=== PATIENT | female | born 1990 | race Caucasian/White ===

== ENCOUNTER 2024-10-29 19:34 | Emergency (ER) | payer OTHER, SELFPAY ==
[2024-10-29 19:38] VITALS: BMI 23.9
[2024-10-29 20:34] VITALS: BP 131/78; PULSE 85; RESP 18; TEMP 37.3; O2SAT 100
--- NOTE | 2024-10-29 20:49 | XR_ITS ---
Examination: OB Transvaginal ultrasound of the pelvis, complete Technique: Transvaginal sonographic images pelvis performed using little scale imaging Exam date and time: October 29, [id number] hours INDICATIONS: Pelvic pain and vaginal bleeding today, history of ectopic FINDINGS: Uterus 7.9 cm Intrauterine gestational sac 1.3 cm corresponds to 6 weeks 1 day gestational age No pole, no cardiac activity Right ovary 3.9 cm arterial flow No appropriate 3.9 cm arterial flow IMPRESSION: Intrauterine gestational sac corresponding to 6 weeks 1 day gestational age No pole, no cardiac activity Recommend short-term follow-up transvaginal pelvic sonography to exclude demise.
[2024-10-29 21:22] LABS: Collection Type, Urine Clean Catch
[2024-10-29 21:31] LABS: Bilirubin,Urine Negative (Negative); Blood,Urine 1+ (Negative); Clarity,Urine Clear (Clear/Hazy); Color,Urine Colorless (Lt Yel-Yel); Glucose, Urine Negative (Negative); Ketones,Urine Negative (Negative); Leukocyte Esterase,Urine Negative (Negative); Nitrite,Urine Negative (Negative); PH,Urine 6.0 (5.0-7.0); Protein,Urine Negative (Neg - Trace); RBC,Urine 2 /hpf (0-3); Specific Gravity,Urine 1.009 (1.001-1.035); Squamous Epithelial Cell,Urine 1 /hpf (0-5); Urobilinogen,Urine Negative mg/dL (0.0-1.0); WBC,Urine 1 /hpf (0-5)
[2024-10-29 21:59] LABS: Basophils # (Auto) 0.0 Thou/mm3 (0.0-0.2); Basophils % (Auto) 0 % (0-2.5); Eosinophils # (Auto) 0.3 Thou/mm3 (0.0-0.5); Eosinophils % (Auto) 3 % (0-10); Hematocrit 38.8 % (36.0-46.0); Hemoglobin 13.3 g/dL (12.0-16.0); Immature Granulocytes Auto 0.04 Thou/mm3 (0.00-0.00); Lymphocytes # (Auto) 3.1 Thou/mm3 (1.0-4.8); Lymphocytes % (Auto) 30 % (10-50); Mean Corpuscular HGB Conc 34.3 g/dl (31.0-37.0); Mean Corpuscular Hemoglobin 30.8 pg (25.0-35.0); Mean Corpuscular Volume 90 fL (80-100); Monocytes # (Auto) 0.7 Thou/mm3 (0.0-0.8); Monocytes % (Auto) 7 % (0-12); Neutrophils # (Auto) 6.2 Thou/mm3 (1.8-7.7); Neutrophils % (Auto) 60 % (37-80); Nucleated Red Blood Cell # 0.00 Thou/mm3 (0.00-0.00); Nucleated Red Blood Cell % 0 /100 WBC (0); Platelet Count 253 Thou/mm3 (140-440); RDW Standard Deviation 41.6 fL (36.4-46.3); Red Blood Count 4.32 Miln/mm3 (4.00-5.20); White Blood Count 10.4 Thou/mm3 (3.6-11.0)
[2024-10-29 22:21] LABS: Alanine Aminotransferase 14 U/L (10-49); Albumin, Serum 4.5 gm/dL (3.5-5.0); Albumin/Globulin Ratio 1.8 (1.2-2.2); Alkaline Phosphatase 51 U/L (46-116); Anion Gap 10 (7-16); Aspartate Amino Transferase 18 U/L (0-34); BUN/Creatinine Ratio 9 Ratio (12-20); Bilirubin,Total 0.3 mg/dL (0.3-1.2); Blood Urea Nitrogen 9 mg/dL (9-23); Calcium 9.4 mg/dL (8.3-10.6); Calcium (Corrected) 9.4 mg/dL (8.5-10.1); Carbon Dioxide 26.5 mMol/L (20.0-31.0); Chloride 105 mMol/L (98-107); Creatinine (Component) 1.0 mg/dL (0.6-1.3); Estimated Creatinine Clearance 65.6 mL/min (>60); Globulin 2.5 gm/dL (2.3-3.5); Glucose 86 mg/dL (74-106); Osmolality,Calculated 278 (275-295); Potassium 3.7 mMol/L (3.4-5.1); Sodium 141 mMol/L (136-145); Total Protein 7.0 gm/dL (5.7-8.2); eGFR > 60 See Note
[2024-10-29 22:55] LABS: Beta HCG,Quantitative 12520 mIU/mL (<5.0)
--- NOTE | 2024-10-30 00:10 | PD.EDVAGBL ---
ED OB Contraction Preg RMI/HPI General Chief complaint: Abdominal Pain Stated complaint: VAGINAL BLEEDING, ABD PAIN Time Seen by Provider: 10/29/24 20:49 Arrival date/time: 10/29/24 19:34 34F at approximately 7-8 weeks and with history of ectopic (s/p L tubal resection) presents to ED with several days of vaginal bleeding and pelvic pain. Limitations: no limitations Related Data Home Medications ?Medication ?Instructions ?Recorded ?Confirmed No Known Home Medications 09/14/17 09/14/17 Allergies Allergy/AdvReac Type Severity Reaction Status Date / Time No Known Allergies Allergy Verified 10/29/24 20:42 Review of Systems Review of Systems Systems Reviewed: All systems reviewed, normal except as documented Constitutional Constitutional: Reports system reviewed and no additional complaints, except as documented, Denies fever(s) and Denies headache(s) ENT Ears, Nose, Mouth, and Throat: Denies disequilibrium and Denies headache(s) Cardiovascular Cardiovascular: Reports system reviewed and no additional complaints, except as documented, Denies chest pain and Denies dyspnea Respiratory Respiratory: Reports system reviewed and no additional complaints, except as documented, Denies cough and Denies dyspnea Gastrointestinal Gastrointestinal: Reports system reviewed and no additional complaints, except as documented, Denies abdominal pain, Denies nausea and Denies vomiting Genitourinary Genitourinary: Reports as per HPI, Reports abnormal vaginal bleeding and Reports pelvic pain Neurologic Neurologic: Reports system reviewed and no additional complaints, except as documented, Denies confusion, Denies disequilibrium and Denies headache(s) Psychiatric Psychiatric: Denies confusion Past Medical History Past Medical History CARDIAC: Negative Congestive Heart Failure RESPIRATORY: Negative Chronic Obstructive Pulmonary Disease (COPD) GENITOURINARY: Negative Renal Disease ENDOCRINE: Negative Diabetes Mellitus Type 1 or Diabetes Mellitus Type 2 Social History SMOKING STATUS: Never smoker ED Exam General Limitations: Present no limitations General appearance: Present alert and in no apparent distress Head Head exam: Present atraumatic Eye Eye exam: Present normal appearance, PERRL and EOMI ENT ENT exam: Present normal exam, normal oropharynx and mucous membranes moist Neck Neck exam: Present normal inspection, full ROM and trachea midline Chest Chest inspection: Present normal inspection and symmetric chest wall rise Respiratory Respiratory exam: Present normal lung sounds bilaterally Cardiovascular Cardiovascular exam: Present regular rate, normal rhythm and normal heart sounds Abdominal Exam Abdominal exam: Present soft and normal bowel sounds Extremities Exam Extremities exam: Present normal inspection and full ROM Back Exam Back exam: Present normal inspection and full ROM Neurological Exam Neurological exam: Present alert, oriented X3 and CN II-XII intact Psychiatric Psychiatric exam: Present normal affect and normal mood Skin Skin exam: Present warm, dry, intact and normal color Course Quality Measures none Orders Category Date Time Status US OB transvaginal Stat Exams 10/29/24 20:49 Completed ABO/RH Type Stat Lab 10/29/24 21:28 Completed Beta HCG,Quantitative Stat Lab 10/29/24 21:28 Completed CBC Stat Lab 10/29/24 21:28 Completed CMP [Comprehensive Metabolic Panel] Stat Lab 10/29/24 21:28 Completed UA [Urinalysis] Stat Lab 10/29/24 21:06 Completed Urine Culture Stat Lab 10/29/24 21:06 Received Vital Signs Vital signs: Vital Signs Temperature 99.2 F 10/29/24 20:34 Pulse Rate 85 10/29/24 20:34 Respiratory Rate 18 10/29/24 20:34 Blood Pressure 131/78 H 10/29/24 20:34 Pulse Oximetry (%) 100 10/29/24 20:34 Oxygen Delivery Method Room Air 10/29/24 20:34 O2 at 100% on RA and WNLs Vaginal Bleeding MDM Narrative MDM Narrative: 34F at approximately 7-8 weeks and with history of ectopic (s/p L tubal resection) presents to ED with several days of vaginal bleeding and pelvic pain. Physical exam reveals well-appearing female. Patient is afebrile, calm, and alert. US reveals IUP but empty gestation sac. Beta HCG around 12.5k, which is above the 10k from yesterday at [facility] (they faxed results). No gross anemia or leukocytosis. Sustainability Manager given. Blood type A+. Patient data External records reviewed:: [facility] previous records and Other (specify) ([facility] records) Clinical information provided by:: patient Social determinants that could affect healthcare access:: none Patient has the following chronic illnesses:: none How is presenting disease/condition affected by chronic disease/condition?: no chronic disease Evaluation data The following diagnostics were reviewed and interpreted by me:: lab results and radiology exam(s) Lab and/or radiology exams considered but not ordered:: ordered Interpretation Summary: above Medications / Prescriptions Medications or Prescriptions considered but not ordered:: not ordered Medication administrations:: n/a Consultations Consultation(s) initiated? (list below): No Diagnosis Vaginal Bleeding Differential Diagnosis: missed , threatened , dysfunctional uterine bleeding, menometrorrhagia, incomplete , ectopic without intrauterine and vaginal bleeding Most likely diagnosis given after review of the tests above:: vaginal bleeding Admission Indicated Admission indicated?: not indicated Admission Request Was there a request for admission?: No Disposition Plan Disposition Plan: Discharge Discharge Attestation Discharge Attestation: The patient and all family members were given an opportunity to ask questions and understood the discharge instructions. Discharge instructions specifically effects, indications for sooner follow up or return to the emergency department, and the expected course of current diagnosis. Patient condition: Stable Discharge Plan Plan Patient Disposition: HOME (Self Care) Discharge Disposition comment: Stable Prescriptions/Referrals Prescriptions/Med Rec: No Action No Known Home Medications Referrals: No Primary/Family,Physician [Primary Care Provider] - In 1 week Problem List Clinical Impression: Vaginal bleeding affecting early Patient/Caregiver Discharge Instructions Education Materials: Bleeding During Early Additional Instructions: Please follow-up with PCP/OBYGN within 24-48 hours and return immediately if symptoms worsen. Print Language: Yi Stand Alone Forms: Patient Portal Info Letter NICK/KARMEN Supervising Physician NICK/KARMEN Supervising Physician: Dr. Reyes
== END 2024-10-29 23:31 | disposition home or self-care (01) ==
PROVIDERS: Physician Assistant; Emergency Provider Emergency Medicine
DX: O20.9 Hemorrhage in early pregnancy, unspecified (principal); Z3A.08 8 weeks gestation of pregnancy
CPT/HCPCS: 36415; 76817; 80053; 81001; 84702; 85025; 86900; 86901; 87086; 99283